=== PATIENT | male | born 1950 | race Caucasian/White ===

== ENCOUNTER → 2016-07-20 | Outpatient (CLI) | payer BC | END | disposition home or self-care (01) | LOC: PCVCIMAG 12:53 | PROVIDERS: ATTEND Internal Medicine Cardiovascular Disease | DX: I25.10 Atherosclerotic heart disease of native coronary artery without angina pectoris (principal); I10 Essential (primary) hypertension; E78.00 Pure hypercholesterolemia, unspecified; I21.3 ST elevation (STEMI) myocardial infarction of unspecified site; Z95.1 Presence of aortocoronary bypass graft | CPT/HCPCS: 93306; G0463 ==

== ENCOUNTER → 2018-01-29 | Outpatient (CLI) | payer BC ==
[~2018-01-29] MED LIST: REGADENOSON 0.4 MG/5 ML DISP.SYRIN. IV ONE
--- NOTE | 2018-01-29 13:05 | PCVCIMAG ---
APPROVED REPORT Imaging Protocol: Rest Tc-99m/Stress Tc-99m 1 day Study performed: 01/29/2018 08:52:24 Indication: CAD , Cardiomyopathy Patient Location: Out-Patient Stress Nurse: Belle Diamond RN, Jojo Umana RN [place] Tech:Nicole Loredoalicia [facility] Ht: 10 ft 10 in Wt: 247 lbs BSA: 3.58 m2 HR: 71 bpm BP: 148/70 mmHg BMI: 10.27 Medical History Medical History: HTN, Hyperlipidemia, Current Smoker, Age, CAD Medications: ASA, Lisinopril, Metoprolol, Simvastatin Allergies: PCN, Sulfa Previous Cardiac Procedures: CABG Pretest Chest Pain Characteristics: No chest pain Exercise History: Sedentary Meds Held (24 hrs): Metoprolol Resting Data Rest SPECT myocardial perfusion imaging was performed in supine position 45 minutes following the intravenous injection of 10.4 mCi of Tc-99m Sestamibi. Time of rest injection: 814 Date: 01/29/2018 Administration Route: IV Administration Site: Right AC Pharmacologic Stress Pharmacologic stress test was performed by injecting Regadenoson 0.4 mg IV push over 10-15 seconds immediately followed by the intravenous injection of 33.2 mCi of Tc-99m Sestamibi. Time of stress injection: Date: 01/29/2018 Administration Route: IV Administration Site: Right AC Gated Stress SPECT was performed 45 minutes after stress injection. The images were gated to evaluate regional wall motion and calculate left ventricular ejection fraction. Stress Test Details Stress Test: Pharmacologic stress testing performed using 0.4 mg of regadenoson per 5 mL given IV over 10 seconds. Reason for pharmacologic stress test: physical limitation, bad ankles. HRMax Heart Rate (APMHR): 154 bpm Resting HR: 71 bpmTarget HR (85% APMHR): 130 bpm Max HR Achieved: 108 bpm % of APMHR: 70 Recovery HR: 96 bpm BP Resting BP: 148/70 mmHg Max BP: 141/73 mmHg Recovery BP: 127/66 mmHg ECG Resting ECG: Sinus Rhythm, nonspecific ST-T abnormalities Stress ECG: Sinus Tachycardia, nonspecific ST-T abnormalities ST Change: Non-ischemic Recovery ECG: Sinus Rhythm, nonspecific ST-T abnormalities Clinical Reason for Termination: Completed protocol Stress Symptoms: Leg Fatigue, Dyspnea Exercise duration: 0 min 55 sec Symptoms resolved during recovery. Study Quality Study: Good Study Data Post stress, the left ventricular ejection was 58%.. SSS: 12 SRS: 11 SDS: 1 TID = 0.74. Perfusion There is a medium area of moderately reduced uptake in the entire segment of the inferior wall which is seen on the stress images and improves on the resting images. This area thickens and moves normally and is most consistent with myocardial scar. Wall Motion Normal left ventricular wall motion. Nuclear Conclusion ECG Findings: negative for ischemia Clinical Findings: non-diagnostic Nuclear Findings: positive for infarct Exercise Capacity: not assessed Left Ventricular Function: normal This study reveals an incomplete infarct in the basal lateral segment. There is a partially reversible defect in the inferolateral wall consistent with a nontransmural KS with mild jones-infarct ischemia. The ejection fraction is 58%.
== END | disposition home or self-care (01) ==
LOC: PCVCIMAG 07:49
PROVIDERS: ATTEND Internal Medicine Cardiovascular Disease
DX: I25.10 Atherosclerotic heart disease of native coronary artery without angina pectoris (principal); F17.200 Nicotine dependence, unspecified, uncomplicated; E78.5 Hyperlipidemia, unspecified; I10 Essential (primary) hypertension
CPT/HCPCS: 78452; 93017; A9500; J2785

== ENCOUNTER → 2018-01-30 | Outpatient (CLI) | payer BC | END | disposition home or self-care (01) | LOC: PCVCCLINIC 14:43 | PROVIDERS: ATTEND Internal Medicine Cardiovascular Disease | DX: Z51.81 Encounter for therapeutic drug level monitoring (principal); I25.10 Atherosclerotic heart disease of native coronary artery without angina pectoris; I10 Essential (primary) hypertension; E78.5 Hyperlipidemia, unspecified; F17.200 Nicotine dependence, unspecified, uncomplicated; Z79.01 Long term (current) use of anticoagulants; Z95.1 Presence of aortocoronary bypass graft; Z72.89 Other problems related to lifestyle; Z88.0 Allergy status to penicillin; Z88.2 Allergy status to sulfonamides | CPT/HCPCS: 36415; 85610 ==

== ENCOUNTER → 2018-07-29 | Outpatient (CLI) | payer MEDICARE | END | disposition home or self-care (01) | LOC: PCVCCLINIC 10:00 | PROVIDERS: ATTEND Internal Medicine Cardiovascular Disease | DX: I25.10 Atherosclerotic heart disease of native coronary artery without angina pectoris (principal); I10 Essential (primary) hypertension; E78.00 Pure hypercholesterolemia, unspecified; F17.200 Nicotine dependence, unspecified, uncomplicated; E78.5 Hyperlipidemia, unspecified; Z95.1 Presence of aortocoronary bypass graft; Z79.82 Long term (current) use of aspirin; Z88.0 Allergy status to penicillin | CPT/HCPCS: 93005; G0463 ==

== ENCOUNTER → 2019-01-27 | Outpatient (CLI) | payer MEDICARE ==
--- NOTE | 2019-01-27 11:42 | PCVCIMAG ---
APPROVED REPORT Study performed: 01/27/2019 10:03:39 EXAM: Comprehensive 2D, Doppler, and color-flow Echocardiogram Patient Location: Echo lab Room #: 2Status: routine BSA: 2.27 HR: 72 bpmBP: 138/76 mmHg Rhythm: NSR Other Information Study Quality: Fair Risk Factors: Cardiac Risk Factors: HTN, Hyperlipidemia, Smoking Indications CAD Hypertension/HDD Hx: CABG x 5. old Inferior,inferolateral WA 2D Dimensions IVSd: 13.42 (7-11mm)LVOT Diam: 22.77 (18-24mm) LVDd: 50.01 mm PWd: 10.44 (7-11mm)Ascending Ao: 31.01 (22-36mm) LVDs: 44.22 (25-40mm) Left Atrium: 30.55 (27-40mm) Aortic Root: 23.31 mm LV Single Plane 4CH: 47.26 % LV Single Plane 2CH: 43.87 % Biplane EF: 47.2 % Volumes Left Atrial Volume (Systole) Single Plane 4CH: 64.76 mLSingle Plane 2CH: 74.36 mL Biplane LA Volume: 72.00 mLLA ESV Index: 32.00 mL/m2 Aortic Valve AoV Peak Ramy.: 1.58 m/s AO Peak Gr.: 9.94 mmHgLVOT Max P.00 mmHg LVOT Max V: 0.87 m/s ARIANA Vmax: 2.24 cm2 Mitral Valve E/A Ratio: 1.1 MV Decel. Time: 220.43 ms MV E Max Ramy.: 0.88 m/s MV A Ramy.: 0.79 m/s IVRT: 100.35 ms TDI E/Lateral E': 6.77E/Medial E': 17.60 Medial E' Ramy.: 0.05 m/s Lateral E' Ramy.: 0.13 m/s Pulmonary Valve PV Peak Ramy.: 1.14 m/sPV Peak Gr.: 5.19 mmHg Pulmonary Vein P Vein S: 0.46 m/sP Vein A: 0.23 m/s P Vein D: 0.46 m/sP Vein A Dur.: 79.6 msec P Vein S/D Ratio: 1.00 Tricuspid Valve TR Peak Ramy.: 1.78 m/s TR Peak Gr.: 12.69 mmHg TV Vmax: 0.75 m/sPA Pressure: 20.00 mmHg Left Ventricle The left ventricle is normal size. Inferolateral hypokinesis consistent with old [place] Mild septal hypertrophy is present. Left ventricular systolic function is mildly decreased. LVEF is 45-50%. Grade I - abnormal relaxation pattern. Right Ventricle The right ventricle is normal size. The right ventricular systolic function is normal. Atria The left atrium size is normal. The right atrium size is normal. Aortic Valve Aortic valve is trileaflet. Aortic valve leaflets are mildly sclerotic but open well. No aortic regurgitation is present. There is no aortic valvular stenosis. Mitral Valve The mitral valve is normal in structure. There is no mitral valve regurgitation noted. No evidence of mitral valve stenosis. Tricuspid Valve The tricuspid valve is normal in structure. Trace tricuspid regurgitation. No apparent pulmonary hypertension. Pulmonic Valve The pulmonary valve is normal in structure. Trace to mild pulmonic regurgitation. Great Vessels The aortic root is normal in size. IVC is normal in size and collapses >50% with inspiration. Pericardium There is no pericardial effusion. <Conclusion> The left ventricle is normal size. Left ventricular systolic function is mildly decreased. Inferolateral hypokinesis consistent with old [place] Grade I - abnormal relaxation pattern. The right ventricle is normal size. The left atrium size is normal. Aortic valve leaflets are mildly sclerotic but open well. There is no mitral valve regurgitation noted. Trace tricuspid regurgitation.
== END | disposition home or self-care (01) ==
LOC: PCVCIMAG 10:44
PROVIDERS: ATTEND Internal Medicine Cardiovascular Disease
DX: I25.10 Atherosclerotic heart disease of native coronary artery without angina pectoris (principal); I10 Essential (primary) hypertension; F17.200 Nicotine dependence, unspecified, uncomplicated; E78.00 Pure hypercholesterolemia, unspecified; Z88.0 Allergy status to penicillin; Z88.8 Allergy status to other drugs, medicaments and biological substances; Z79.82 Long term (current) use of aspirin
CPT/HCPCS: 36415; 93005; 93306; G0463